=== PATIENT | male | born 1990 | race Caucasian/White ===

== ENCOUNTER 2018-03-21 11:26 | Emergency (ER) | payer BC ==
[~2018-03-21] VITALS: Ht 182.9 cm; Wt 81.6 kg
[2018-03-21] MEDS ORDERED: TYLENOL WITH C1 EACH PO (11:41)
[2018-03-21] MEDS ORDERED: CLINDAMYCIN HC300 MG PO (11:41)
[2018-03-21] MEDS ORDERED: LIDOCAINE HCL 1% LOCAL INJ 20 ML VIAL ONE (11:53)
[2018-03-21] MEDS ORDERED: HYDROCODONE/APAP 7.5MG-325MG 1 EA TAB PO ONE (12:00)
[2018-03-21] MEDS ORDERED: LIDOCAINE HCL 1% 2 ML AMP INJ ONE (12:00)
[2018-03-21 12:41] VITALS: BP 116/58
== END 2018-03-21 12:48 | disposition home or self-care (01) ==
LOC: ER 11:26
DX: L05.01 Pilonidal cyst with abscess (principal)
CPT/HCPCS: 10081; 99283; J2001